=== PATIENT | female | born 1955 | race Caucasian/White ===

== ENCOUNTER 2019-05-11 12:50 | Emergency (ER) | payer OTHER ==
[2019-05-11 13:26] VITALS: RESP 18
[2019-05-11 15:09] LABS: Basophils % (A) 1 %; Eosinophils # (A) 0.2 k/uL (0-0.7); Eosinophils % (A) 2 %; HCT 40.8 % (34.0-46.0); HGB 13.6 gm/dL (11.4-16.0); Lymphocytes # (A) 2.3 k/uL (1.0-4.8); Lymphocytes % (A) 30 %; MCH 29.7 pg (25.0-35.0); MCHC 33.4 g/dL (31.0-37.0); MCV 88.7 fL (80.0-100.0); Mean Platelet Volume 7.3; Monocytes # (A) 0.4 k/uL (0-1.0); Monocytes % (A) 5 %; Neutrophils # (A) 4.5 k/uL (1.3-7.7); Neutrophils % (A) 60 %; Platelet Count 369 k/uL (150-450); RDW 13.6 % (11.5-15.5); WBC 7.6 k/uL (3.8-10.6)
[2019-05-11 15:17] LABS: African American GFR (CKD) >90 (>60 ml/min/1.73 sqM); Anion Gap 7 mmol/L; Blood Urea Nitrogen 12 mg/dL (7-17); Calcium 9.2 mg/dL (8.4-10.2); Carbon Dioxide 24 mmol/L (22-30); Chloride 107 mmol/L (98-107); Glucose 100 mg/dL (74-99); Non-African American GFR(CKD) >90 (>60 ml/min/1.73 sqM); Potassium 4.4 mmol/L (3.5-5.1); Sodium 138 mmol/L (137-145)
--- NOTE | 2019-05-11 15:24 | ED ---
ENT HPI - General Chief complaint: ENT Stated complaint: Nosebleed Time Seen by Provider: 05/11/19 14:07 Source: patient, RN notes reviewed, old records reviewed Mode of arrival: ambulatory Limitations: no limitations - History of Present Illness Initial comments: 63 year old female with frequent nosebleeds and a light headed episode while in the shower 2 days ago. She has no chest pain or other complaints. Patient reports no history of nose bleed. She felt like she was having another nosebleed and went to urgent care. Patient was sent here for further eval. She denies lightheadedness at this time and denies chest pain. - Related Data Previous Rx's Medication Instructions Recorded Sodium Chloride [Saline Nasal 1 spray EA NOSTRIL TID #1 bottle 05/11/19 [place]] Allergies Allergy/AdvReac Type Severity Reaction Status Date / Time No Known Allergies Allergy Verified 05/11/19 13:26 Review of Systems ROS Statement: Those systems with pertinent positive or pertinent negative responses have been documented in the HPI. ROS Other: All systems not noted in ROS Statement are negative. Past Medical History History of Any Multi-Drug Resistant Organisms: None Reported Past Surgical History: No Surgical Hx Reported Smoking Status: Current every day smoker Past Alcohol Use History: None Reported Past Drug Use History: None Reported General Exam - General Exam Comments Initial Comments: 63 year old female, no distress. Limitations: no limitations General appearance: alert, in no apparent distress Head exam: Present: atraumatic, normocephalic, normal inspection Eye exam: Present: normal appearance, PERRL, EOMI. Absent: scleral icterus, conjunctival injection, periorbital swelling ENT exam: Present: normal exam, mucous membranes moist, other (no nosebleed at this time. Erythematous trubinates. ) Neck exam: Present: normal inspection. Absent: tenderness, meningismus, lymphadenopathy Respiratory exam: Present: normal lung sounds bilaterally. Absent: respiratory distress, wheezes, rales, rhonchi, stridor Cardiovascular Exam: Present: regular rate, normal rhythm, normal heart sounds. Absent: systolic murmur, diastolic murmur, rubs, gallop, clicks Neurological exam: Present: alert, oriented X3, CN II-XII intact Psychiatric exam: Present: normal affect, normal mood Skin exam: Present: warm, dry, intact, normal color. Absent: rash Course Vital Signs 05/11/19 05/11/19 13:22 15:43 Temperature 97.9 F 98.3 F Pulse Rate 82 80 Respiratory 18 18 Rate Blood Pressure 141/81 136/78 O2 Sat by Pulse 99 99 Oximetry Medical Decision Making - Medical Decision Making 63 year old female with history of nosebleed and was concerned of blood loss causing lightheadedness. She has no bleeding at this time. She has no feelings of dizziness or headache or chest pain. Labs show normal hemoglobin. Discussed to prevent further nosebleeds to use nasal spray and advised on return parameters. Discussed follow up with a PCP. Return parameters discussed. - Lab Data Result diagrams: 05/11/19 14:57 05/11/19 14:57 Lab Results 05/11/19 05/11/19 05/11/19 Range/Units 14:57 14:57 14:57 WBC 7.6 (3.8-10.6) k/uL RBC 4.60 (3.80-5.40) m/uL Hgb 13.6 (11.4-16.0) gm/dL Hct 40.8 (34.0-46.0) % MCV 88.7 (80.0-100.0) fL MCH 29.7 (25.0-35.0) pg MCHC 33.4 (31.0-37.0) g/dL RDW 13.6 (11.5-15.5) % Plt Count 369 (150-450) k/uL Neutrophils % 60 % Lymphocytes % 30 % Monocytes % 5 % Eosinophils % 2 % Basophils % 1 % Neutrophils # 4.5 (1.3-7.7) k/uL Lymphocytes # 2.3 (1.0-4.8) k/uL Monocytes # 0.4 (0-1.0) k/uL Eosinophils # 0.2 (0-0.7) k/uL Basophils # 0.0 (0-0.2) k/uL PT 9.8 (9.0-12.0) sec INR 0.9 (<1.2) APTT 25.7 (22.0-30.0) sec Sodium 138 (137-145) mmol/L Potassium 4.4 (3.5-5.1) mmol/L Chloride 107 (98-107) mmol/L Carbon Dioxide 24 (22-30) mmol/L Anion Gap 7 mmol/L BUN 12 (7-17) mg/dL Creatinine 0.62 (0.52-1.04) mg/dL Est GFR (CKD-EPI)AfAm >90 (>60 ml/min/1.73 sqM) Est GFR (CKD-EPI)NonAf >90 (>60 ml/min/1.73 sqM) Glucose 100 H (74-99) mg/dL Calcium 9.2 (8.4-10.2) mg/dL Disposition Clinical Impression: Hx of epistaxis Disposition: HOME SELF-CARE Condition: Good Instructions (If sedation given, give patient instructions): Nosebleed (ED) Additional Instructions: Patient advised to use the humidifier by her bed. Patient continues the nasal saline spray as well to help prevent future nosebleed. Patient advised to follow-up with primary care physician as well. Return to ED if any alarming signs or symptoms occur. Patient would have further nosebleeds hold the nail is a clamp for 15-20 minutes with firm pressure. A few have nosebleeds a persist return to the ED for possible packing. Prescriptions: Sodium Chloride [Saline Nasal [place]] 1 spray EA NOSTRIL TID #1 bottle Is patient prescribed a controlled substance at d/c from ED?: No Referrals: None,Stated [Primary Care Provider] - 1-2 days Delio Chowdhury DO [Doctor of Osteopathic Medicine] - 1-2 days Time of Disposition: 15:22
[2019-05-11 15:26] LABS: INR 0.9 (<1.2); Partial Thromboplastin Time 25.7 sec (22.0-30.0); Prothrombin Time 9.8 sec (9.0-12.0)
[2019-05-11 15:44] VITALS: BP 136/78; PULSE 80; TEMP 98.3
== END 2019-05-11 15:44 | disposition home or self-care (01) ==
LOC: EC 12:50
DX: R04.0 Epistaxis (principal); F17.200 Nicotine dependence, unspecified, uncomplicated
CPT/HCPCS: 36415; 80048; 85025; 85610; 85730; 99284

== ENCOUNTER → 2023-09-13 | Outpatient (CLI) | payer MEDICARE ==
--- NOTE | 2023-09-27 16:39 | CTL ---
EXAMINATION TYPE: CT Low Dose Lung DATE OF EXAM: 09/13/2023 3:25 PM CLINICAL INDICATION:Female, 67 years old with history of Z12.2,F17.210 NICOTINE DEPENDENCE, CIGARETTE S, [employer]; personal h/o tobacco use , history of tobacco use. COMPARISON: None. TECHNIQUE: CT scan of the chest obtained without contrast from approximately the lung apices through the upper abdomen. Axial, coronal and sagittal reformatted images were obtained. Low dose technique w as utilized for nodule screening purposes. CT DLP: 69.4 mGycm, Automated exposure control for dose reduction was used. CT Contrast: IV contrast used: None. Oral contrast used: None. FINDINGS: Lack of intravenous contrast and low dose technique limits the evaluation of the vascular and soft ti ssue structures. LUNGS: No evidence of pulmonary fibrosis. No evidence of focal consolidation or infiltrate. There are emphysematous changes bilaterally, moderate in degree. Mild scattered areas of linear scarring. Pare nchymal stranding at the left lung base with the appearance of subsegmental atelectasis or scarring. NODULES: No clinically significant nodules demonstrated. PLEURA: No sizeable pleural effusion or pneumothorax. AIRWAY: Central airways are patent. LOWER NECK: No significant findings. The thyroid is unremarkable. MEDIASTINUM: No evidence of enlarged mediastinal or hilar nodes, in the limits of noncontrast exam.. HEART: Normal heart size. . No appreciable pericardial effusion. VASCULATURE: Mild atherosclerotic calcifications of the ascending aorta and arch. Ascending aorta is 3.3 CM, descending is 2.2 CM. Pulmonary trunk measures roughly 2.4 CM, normal in size. Vessels othe rwise not further assessed without contrast. SOFT TISSUES/LYMPH NODES: Unremarkable soft tissues. No axillary adenopathy. UPPER ABDOMEN: No significant findings. MUSCULOSKELETAL: Mild disc degeneration changes are present throughout the visualized spine. No acut e findings. IMPRESSION: 1. No clinically significant pulmonary nodules. 2. Moderate pulmonary emphysematous changes, upper lobe predominant. CT LUNG-RADS AND FOLLOWUP RECOMMENDATION: Lung-RADS Category 1, Negative: Continue annual screening with LDCT in 12 months. C Modifier (Personal history of lung cancer?): No. S Modifier (Other clinically significant or potentially significant findings?): No. Other significant or potentially significant abnormalities: None. Recommend smoking cessation (if current smoker), or continuation of smoking cessation (if prior smoke r). Annual screening for lung cancer with low-dose computed tomography is recommended in adults ages 55 to 77 years who have a 30 pack-year smoking history and currently smoke or have quit within the pa st 15 years. Screening should be discontinued once a person has not smoked for 15 years or develops a health problem that substantially limits life expectancy or the ability or willingness to have curat le[place]on lung surgery. Lung-RADS v.2021 Link Here [email or web address]
== END | disposition home or self-care (01) ==
LOC: RADCTMAIN 15:03
PROVIDERS: ATTEND Family Medicine
DX: Z12.2 Encounter for screening for malignant neoplasm of respiratory organs (principal); J43.9 Emphysema, unspecified; F17.210 Nicotine dependence, cigarettes, uncomplicated
CPT/HCPCS: 71271